=== PATIENT | male | born 1935 | race Caucasian/White ===

== ENCOUNTER → 2016-09-16 | Outpatient (CLI) | payer MEDICARE ==
[~2016-09-16] MED LIST: ASPIRIN325 MG PO; COLACE100 MG PO; DOXYCYCLINE100 MG PO; GLUCOPHAGE500 MG PO; LASIX40 MG PO; LEVOTHROID (S200 MCG PO; LOPRESSOR25 MG PO; MILK OF MA400 MG/5 M PO; MIRALAX17 GM PO; MULTI VITAMIN1 EACH PO; NEURONTIN600 MG PO; NYSTATIN1 EAC1 TOP; PLAVIX75 MG PO; TYLENOL325 MG PO; ULTRAM50 MG PO; VITAMIN D-32000 UNI1 PO; ZANAFLEX4 MG PO
[2016-09-16 12:00] LABS: BASOPHIL % 0.5 %; EOSINOPHIL # 0.2 K/uL (0.0-0.5); HEMOGLOBIN 13.1 g/dL (11.0-16.0); IMMATURE GRANULOCYTE % 0.2 %; LYMPHOCYTE # 1.5 K/uL (0.8-4.0); LYMPHOCYTE % 27.4 %; MCH 29.9 pg (27.0-34.0); MCV 93.6 fl (83.0-98.0); MONOCYTE # 0.4 K/uL (0.0-1.0); MPV 9.9 fl (9.4-12.4); NEUTROPHIL # (ANC) 3.3 K/uL (1.4-9.0); NEUTROPHIL % 59.9 %; NRBC % 0 /100WBC (0-0.00); RBC 4.38 M/uL (3.50-5.50); RDW-CV 14.4 % (11.9-14.6); WBC 5.5 K/uL (4.0-11.0)
[2016-09-16 12:14] LABS: ALBUMIN 3.5 gm/dL (3.5-5.0); ALK PHOS 104 IU/L (33-138); ALT 17 IU/L (12-78); BLOOD UREA NITROGEN 20 mg/dL (6-24); CALCIUM 8.8 mg/dL (8.5-10.5); CHLORIDE 109 mMol/L (96-110); CO2 23 mMol/L (22-32); CREATININE 0.9 mg/dL (0.6-1.3); ESTIMATED GFR (MDRD EQUATION) > 60; TOTAL BILIRUBIN 0.4 mg/dL (0.0-1.5); TOTAL PROTEIN 6.5 g/dL (6.0-8.4)
[2016-09-16 12:25] LABS: ANION GAP 18.1 (10.0-19.0); AST 23 IU/L (10-40); PLATELET COUNT 180 K/uL (150-450); POTASSIUM 4.1 mMol/L (3.7-5.1); SODIUM 146 mMol/L (135-145)
== END | disposition disaster alternative care site (69) ==
LOC: LJOHN2 11:03
PROVIDERS: Internal Medicine Geriatric Medicine
DX: I25.10 Atherosclerotic heart disease of native coronary artery without angina pectoris (principal); I10 Essential (primary) hypertension; I50.9 Heart failure, unspecified; E87.6 Hypokalemia

== ENCOUNTER → 2016-09-17 | Outpatient (CLI) | payer MEDICARE | END | disposition disaster alternative care site (69) | LOC: LJOHN2 09-16 12:46 | DX: I25.10 Atherosclerotic heart disease of native coronary artery without angina pectoris (principal); I50.9 Heart failure, unspecified; I10 Essential (primary) hypertension; E87.6 Hypokalemia ==

== ENCOUNTER → 2016-10-25 | Outpatient (CLI) | payer MEDICARE | END | disposition disaster alternative care site (69) | LOC: GRAD 09:34 | DX: M48.02 Spinal stenosis, cervical region (principal); M16.10 Unilateral primary osteoarthritis, unspecified hip; M24.7 Protrusio acetabuli; M89.371 Hypertrophy of bone, right ankle and foot; M25.78 Osteophyte, vertebrae; Z96.641 Presence of right artificial hip joint; Z96.642 Presence of left artificial hip joint ==

== ENCOUNTER → 2017-01-17 | Outpatient (CLI) | payer MEDICARE | END | disposition disaster alternative care site (69) | LOC: GRAD 15:45 | DX: I25.10 Atherosclerotic heart disease of native coronary artery without angina pectoris (principal); R91.8 Other nonspecific abnormal finding of lung field ==

== ENCOUNTER → 2017-01-17 | Outpatient (CLI) | payer MEDICARE ==
[2017-01-17 15:52] LABS: BASOPHIL # 0.1 K/uL (0.0-0.2); BASOPHIL % 0.7 %; EOSINOPHIL # 0.3 K/uL (0.0-0.5); EOSINOPHIL % 4.6 %; HEMATOCRIT 42.2 % (33.0-50.0); HEMOGLOBIN 13.6 g/dL (11.0-16.0); IMMATURE GRANULOCYTE % 0.6 %; LYMPHOCYTE # 2.2 K/uL (0.8-4.0); LYMPHOCYTE % 29.7 %; MCH 29.8 pg (27.0-34.0); MCHC 32.2 gm/dL (32.0-36.5); MCV 92.5 fl (83.0-98.0); MONOCYTE # 0.6 K/uL (0.0-1.0); MONOCYTE % 8.8 %; MPV 8.9 fl (9.4-12.4); NEUTROPHIL % 55.6 %; NRBC % 0 /100WBC (0-0.00); PLATELET COUNT 240 K/uL (150-450); RBC 4.56 M/uL (3.50-5.50); RDW-CV 13.7 % (11.9-14.6); WBC 7.3 K/uL (4.0-11.0)
[2017-01-17 16:05] LABS: ANION GAP 10.8 (10.0-19.0); CALCIUM 9.3 mg/dL (8.5-10.5); POTASSIUM 3.8 mMol/L (3.7-5.1); TOTAL BILIRUBIN 0.3 mg/dL (0.0-1.5)
== END ==
LOC: LCNC 15:23
PROVIDERS: Internal Medicine Interventional Cardiology
DX: I25.10 Atherosclerotic heart disease of native coronary artery without angina pectoris (principal)

== ENCOUNTER → 2017-01-18 | Outpatient (CLI) | payer MEDICARE ==
--- NOTE | ~2017-01-18 | ECHO ---
Transthoracic Echocardiography Report (TTE) Demographics Patient Name LEMUEL ARMENDARIZ Date of Study 01/18/2017 Patient Number [id number] Visit Number [id number] Date of 1935 Room Number Accession Number [id number] Gender Male Age 81 year(s) Referring Randal Dowling MD Synchro Assembler Barb Mascorro RVT Physician Grzegorz Webster MD Physician Interpreting Randal Dowling MD [place] Bone Roller Physician Supervising Ordering Physician Randal Dowling MD, MD/P Nurse Stress Monogram Machine Operator Conclusions Contractility Score Summary Normal Left Ventricular contractility was noted. Summary Definity images are 69-74. The estimated left ventricular ejection fraction is 55-60%. Mild concentric left ventricular hypertrophy. Diastolic function indeterminate due to patient's arrhythmia. The left atrium is moderately dilated. The right atrium is mildly dilated. IVC not visualized due to poor subcostal window. Mild mitral annular calcification. Mild calcification of the mitral valve. There is moderate aortic stenosis by the Continuity Equation. The peak velocity is 2.94 m/s, the mean gradient is 20 mmHg, and the valve area based on the continuity equation is .96 cm2. There is moderate aortic regurgitation by color Doppler. Trivial tricuspid regurgitation by color Doppler. Procedure Type of Study TTE procedure:2D Echocardiogram, Echo with Contrast. Procedure Date Date: 01/18/2017 Start: 10:32 AM Study Location: Inpatient Portable Technical Quality: Limited visualization due to body habitus. Indications:Pre surgical clearance. Appropriate Use Criteria: 9 Patient Status: Routine HR: 74 bpm M-Mode/2D Measurements LV Diastolic Dimension: 4.28 cm LV Systolic Dimension: 2.62 cm LV Septum Diastolic: 1.38 cm LV PW Diastolic: 1.23 cm AO Root Dimension: 3.3 cm Cardiac Output: 5.37 l/min AV Cusp Separation: 0.5 cm RV Diastolic Dimension: 3.91 cm LA Dimension: 3.8 cm LA volume: 110 ml LVOT: 2 cm RV Base: 3.36 cm LVOT VTI: 23.1 cm RV Mid: 2.99 cm LV Stroke volume: 72.53 ml RV Length: 6.95 cm TAPSE: 1.67 cm TDI-S': 9.54 cm/s Doppler Measurements AV Peak Velocity: 2.94 m/s MV Peak E-Wave: 1.12 m/s AV Peak Gradient: 34.57 mmHg MV Peak A-Wave: 0.69 m/s AV Mean Gradient: 20 mmHg MV E/A Ratio: 1.64 LVOT Peak Velocity: 0.84 m/s MV P1/2t: 67 msec AV P1/2t: 440 msec TR Gradient:11.56 mmHg PV Peak Velocity: 1.46 m/s PV Peak Gradient: 8.53 mmHg E' Septal Velocity: 0.05 m/s A' Septal Velocity: 0.09 m/s E' Lateral Velocity: 0.08 m/s A' Lateral Velocity: 0.09 m/s Findings Left Ventricle Mild concentric left ventricular hypertrophy. Right Ventricle Normal right ventricle structure and function. Left Atrium Normal left atrial size. Right Atrium The right atrium is mildly dilated. IVC not visualized due to poor subcostal window. Mitral Valve Mild mitral annular calcification. Mild calcification of the mitral valve. Aortic Valve There is moderate aortic stenosis by the Continuity Equation. The peak velocity is 2.94 m/s, the mean gradient is 20 mmHg, and the valve area based on the continuity equation is .96 cm2. There is mild aortic regurgitation by color Doppler. Tricuspid Valve Trivial tricuspid regurgitation by color Doppler. Pulmonic Valve Normal pulmonic valve structure and function. Pericardial Effusion No evidence of pericardial effusion. Miscellaneous Visualized portions of the aortic root and ascending aorta appear normal in size. Pleural Effusion No evidence of pleural effusion. Contractility Score LV regional wall motion:(0-Non visualized 1-Normal 2-Hypokinesis 3-Akinesis 4-Dyskinesis 5-Aneurysm) Signature dtt: Nitesh Tee (cardio) dtd: 01/18/17 1032 Physician Self Edit
== END | disposition disaster alternative care site (69) ==
LOC: GRAD 07:32
DX: I25.10 Atherosclerotic heart disease of native coronary artery without angina pectoris (principal); I51.7 Cardiomegaly; I49.9 Cardiac arrhythmia, unspecified; I25.3 Aneurysm of heart; I35.0 Nonrheumatic aortic (valve) stenosis; I35.1 Nonrheumatic aortic (valve) insufficiency; I07.1 Rheumatic tricuspid insufficiency; R06.02 Shortness of breath
CPT/HCPCS: C8929; J2785; Q9957